=== PATIENT | male | born 2005 | race Caucasian/White ===

== ENCOUNTER 2024-01-28 12:09 | Emergency (ER) | payer BC, SELFPAY ==
[2024-01-28 12:10] VITALS: BP 149/98; PULSE 65; PULSE 68; RESP 12; TEMP 35.8; O2SAT 100; BMI 41.9
[2024-01-28 12:49] VITALS: TEMP 35.8; O2SAT 97
--- NOTE | 2024-01-28 13:16 | EDS_ITS ---
HPI History of Present Illness Chief Complaint: Head Injury Informant: patient Narrative Narrative: 18-year-old male presenting to the emergency department chief complaint of head injury. Patient states he is getting ready to go into work today when his foot got stuck underneath his car and he fell backwards striking left shoulder and left side of his head on the ground. No loss conscious. He notes a slight headache. He notes some mild discomfort in the left shoulder. He does not take any blood thinners. He states that he had some difficulty using the computer when he got to work. He has a history of pseudotumor cerebri is on acetazolamide. No nausea or vomiting. [facility] Medical History Pseudotumor Home Medications acetazolamide 250 mg tablet 250 mg PO Q8H 01/28/24 [History Last Taken 01/28/24] Allergy/AdvReac Type Severity Reaction Status Date / Time No Known Allergies Allergy Verified 01/28/24 12:10 Surgical History H/O wisdom tooth extraction History of tonsillectomy and adenoidectomy Social History Smoking Status: Never smoker ROS ROS ED Constitutional Constitutional ED: Denies chills, fever(s) or weight loss Eyes Eyes: Denies blurry vision or diplopia ENT ENT ED: Denies ear pain, rhinorrhea or sore throat Cardiovascular Cardiovascular: Denies chest pain, orthopnea, palpitations or racing heartbeat Respiratory/Chest Respiratory/Chest: Denies cough, dyspnea or orthopnea Gastrointestinal Gastrointestinal: Denies abdominal pain, diarrhea, nausea or vomiting Genitourinary Genitourinary ED: Denies dysuria, hematuria or urinary frequency Musculoskeletal Musculoskeletal: Reports other Details: See history of present illness ; Denies arthralgias or myalgias Integumentary Denies abscess or rash Neurologic Neurologic: Reports headache(s); Denies weakness Psychiatric Psychiatric: Denies anxiety, depression, suicidal ideation or suicidal thoughts Endocrine Endocrinology: Denies polydipsia, polyphagia or polyuria Allergic/Immunologic Allergic/Immunologic ED: Denies mouth swelling, tongue swelling or urticaria EXAM Physical Exam Const Vital Signs: 01/28/24 12:10 01/28/24 12:10 01/28/24 12:49 Temperature 96.4 F L 96.4 F L 96.4 F L Temperature Source Temporal Temporal Pulse Rate 65 68 Respiratory Rate 12 12 Respiratory Effort Normal Non-Labored Respiratory Depth Normal Respiratory Pattern Normal Blood Pressure 149/98 H 149/98 H Blood Pressure Mean 115 115 Pulse Ox 100 100 97 Oxygen Delivery Method Room Air Room Air Room Air Positive well nourished, well developed and obese General Appearance ED: well developed Nutritional Appearance: obese HEENT Reports normocephalic, head/scalp atraumatic and moist mucous membranes HEENT Narrative: No palpable bony depression. No hemotympanums. No raccoon eyes or Camarena sign. I do not appreciate any laceration or abrasions or hematomas. Eyes PERRL and EOMs intact bilaterally Neck no lymphadenopathy, supple and no JVD Resp normal respiratory effort and clear to auscultation bilaterally Cardio regular rate, regular rhythm and no murmurs GI normal to inspection, nondistended, normoactive bowel sounds and non-tender Palpation: soft Back/Spine no CVA tenderness and normal ROM Extremity normal to inspection Extremity Narrative: I do not appreciate any bony tenderness or deformities. Normal range of motion of the left arm/shoulder. General Extremety ED: Negative for edema General Extremity: Negative for edema Neuro oriented x3 and CN's II-XII intact bilaterally Sensorium / Orientation: alert Motor Exam: strength 5/5 throughout Psych mental status grossly normal Mood & Affect: Negative for depressed or tearful Skin no rashes or lesions noted and no wounds MDM MDM MDM Narrative Medical decision making narrative: Clinically I think would classify this as a mild concussion. I do not believe advanced imaging is needed. Would recommend rest Tylenol as needed. Follow-up with primary care in 1 week History & Record Review Discussion w/independent historian: Patient Discharge Plan Triage Chief Complaint: Head Injury ED Provider: Rah Juares Dx/Rx/DC Orders Prescriptions: No Action acetazolamide 250 mg tablet 250 mg PO Q8H Primary Care Provider: Garcia Sanchez Referrals: Garcia Sanchez MD [Primary Care Provider] -
[2024-01-28 13:34] VITALS: BP 118/66; PULSE 68; RESP 18; TEMP 36.3; O2SAT 97
== END 2024-01-28 13:48 | disposition home or self-care (01) ==
PROVIDERS: Emergency Provider Emergency Medicine; PCP Pediatrics; Visit Provider Emergency Medicine
DX: S06.0X0A Concussion without loss of consciousness, initial encounter (principal); W01.198A Fall on same level from slipping, tripping and stumbling with subsequent striking against other object, initial encounter; G93.2 Benign intracranial hypertension
CPT/HCPCS: 99282

== ENCOUNTER 2025-04-26 19:06 | Emergency (ER) | payer BC, SELFPAY ==
[2025-04-26 19:07] VITALS: BP 144/86; PULSE 96; RESP 16; TEMP 36.1; O2SAT 100; BMI 36.1
--- NOTE | 2025-04-26 20:37 | EDS_ITS ---
HPI History of Present Illness Chief Complaint: Head Injury Informant: patient Onset/Context/Timing Onset: Today Mechanism/Context: Blunt Injury and Work Related Quality of Pain: Sharp and Stabbing Location: Right frontal Worsened by: Extension of his neck Relieved by: Nothing Associated Symptoms Associated Symptoms: Negative for Parasthesias, Weakness, Loss of function, Inability to ambulate, Loss of consciousness or Amnesia Narrative Narrative: Patient presents with a head injury that occurred today while he was at work. Patient states he was hit in the head by a steel pipe. Patient denies any loss of consciousness. Patient describes his pain as sharp and stabbing. Patient states the pain is mainly over the right side of his head. Patient states his pain is worse with extension of his neck. Patient states nothing makes it bett er. Patient admits to some nausea and vomiting after the injury. Patient denies any visual changes. Patient states he feels dizzy. Patient denies any paresthesias or weakness. [facility] Medical History Pseudotumor Home Medications ?Medication ?Instructions ?Recorded ?Last Taken ?Type NK 04/26/25 Unknown History Allergy/AdvReac Type Severity Reaction Status Date / Time No Known Allergies Allergy Verified 04/26/25 19:06 Surgical History H/O wisdom tooth extraction History of tonsillectomy and adenoidectomy Social History Smoking Status: Never smoker ROS ROS ED Constitutional Constitutional ED: Denies chills or fever(s) Eyes Eyes: Denies blurry vision or change in vision ENT ENT ED: Denies rhinorrhea or sore throat Cardiovascular Cardiovascular: Denies chest pain or palpitations Respiratory/Chest Respiratory/Chest: Denies cough or dyspnea Gastrointestinal Gastrointestinal: Reports nausea and vomiting Genitourinary Genitourinary ED: Denies dysuria or hematuria Musculoskeletal Musculoskeletal: Denies back pain or neck pain Integumentary Denies abscess or rash Neurologic Neurologic: Reports headache(s); Denies weakness Allergic/Immunologic Allergic/Immunologic ED: Denies mouth swelling or urticaria EXAM Physical Exam Const Vital Signs: 04/26/25 19:07 04/26/25 20:04 Temperature 97 F L Temperature Source Oral Pulse Rate 96 Respiratory Rate 16 Respiratory Effort Normal Non-Labored Respiratory Depth Normal Respiratory Pattern Normal Blood Pressure 144/86 H Blood Pressure Mean 105 Pulse Ox 100 Oxygen Delivery Method Room Air Positive well nourished and well developed General Appearance ED: well developed and NAD HEENT HEENT Narrative: There is tenderness without any small hematoma over the right frontal scalp. There is no bony crepitance or step-off noted. There is a small superficial abrasion over this area as well. There is no bleeding noted. Eyes PERRL and EOMs intact bilaterally Neck full ROM Resp normal respiratory effort and clear to auscultation bilaterally Cardio regular rhythm Rate: regular rate GI non-tender and non-distended Palpation: soft Extremity normal to inspection and full ROM Neuro oriented x3, CN's II-XII intact bilaterally, moves all extremities, no focal motor deficits, no sensory deficits noted and gait normal Lu Coma Scale: document GCS findings Spontaneous Obeys Commands Oriented 15 Sensorium / Orientation: alert Motor Exam: strength 5/5 throughout Psych mental status grossly normal and thought process normal MDM MDM MDM Narrative Medical decision making narrative: Differential diagnosis includes intracranial bleeding, cranial fracture, closed head injury, and concussion. CT scan of the brain will be obtained to assess for intracranial bleeding and fracture. Radiography Diagnostic Testing: Clinical Impression(s) from Imaging Studies Brain CT 04/26/25 20:41 IMPRESSION: No acute intracranial process. Reading Location: [facility] CT scan of the brain was obtained. There is no acute intracranial abnormality. This was interpreted by the radiologist and was also independently reviewed by myself. Treatment and Re-Evaluation Narrative: Patient was advised of his findings. Patient was given head injury instructions. Patient was instructed to drink plenty of fluids. Patient was instructed to limit his screen time on his phone, TV, and tablet. Patient was instructed to take Tylenol or ibuprofen as needed for pain. Patient was instructed to follow-up with his primary care physician in 5 to 7 days. Patient understood and was agreeable with the plan. All questions were answered. Discharge Plan Triage Chief Complaint: Head Injury ED Provider: Denilson Arellano Dx/Rx/DC Orders Clinical Impression: Closed head injury, Elevated blood pressure reading without diagnosis of hypertension Instructions: ED Head Injury (Adult) Prescriptions: No Action NK Primary Care Provider: Garcia Sanchez Referrals: Garcia Sanchez MD [Primary Care Provider] - 5-7 Days Print Language: Guamanian Disposition Disposition: Home, Self Care
--- NOTE | 2025-04-26 20:41 | CT_ITS ---
PROCEDURE: BRAIN/HEAD WITHOUT CONTRAST 04/26/2025 REASON FOR EXAM: HEAD INJURY TECHNIQUE: BRAIN/HEAD WITHOUT CONTRAST Coronal and Sagittal reconstruction series were provided. One or more dose reduction techniques were used (e.g., Automated exposure control, adjustment of the mA and/or kV according to patient size, use of iterative reconstruction technique. RADIATION DOSE SUMMARY: DLP: [id number] mGycm COMPARISON: None FINDINGS: There is no acute infarct, intracranial hemorrhage, or mass effect. There is no hydrocephalus or significant midline shift. No acute, depressed calvarial fractures. No large scalp hematomas. Right parietal scalp 2.8 x [address]/Brain/Head without Contrast IMPRESSION: No acute intracranial process. Reading Location: [id number]
[2025-04-26 21:38] VITALS: BP 132/78; PULSE 72; RESP 16; TEMP 36.8; O2SAT 98
== END 2025-04-26 21:40 | disposition home or self-care (01) ==
PROVIDERS: Emergency Provider Emergency Medicine; PCP Pediatrics; Visit Provider Emergency Medicine
DX: S00.01XA Abrasion of scalp, initial encounter (principal); W22.09XA Striking against other stationary object, initial encounter; Y99.0 Civilian activity done for income or pay; R03.0 Elevated blood-pressure reading, without diagnosis of hypertension
CPT/HCPCS: 70450; 99282